=== PATIENT | female | born 1970 | race African-American/Black ===

== ENCOUNTER 2017-06-06 21:14 | Inpatient (IN) ==
[2017-06-06] MEDS ORDERED: SODIUM CHLORIDE 0.9% 1,000 ML IV STA (22:58)
[2017-06-06 23:30] LABS: Basophils % 0.1 % (0.0-0.8); Hematocrit 42.1 VOL% (35.7-47.0); Hemoglobin 14.5 GM/DL (12.0-16.0); Immature Granulocytes % 0.7 %; Immature Granulocytes Absolute 0.05 #; Lymphocytes # 1.4 10*3/uL (1.4-4.0); Lymphocytes % 19.6 % (21.3-54.2); Mean Corpuscular HGB Conc 34.4 GM/DL (32-36); Mean Corpuscular Hemoglobin 29 PG (27-34); Mean Corpuscular Volume 83.4 FL (87-102); Monocytes # 0.6 10*3/uL (0.11-0.8); Monocytes % 8.3 % (1.7-12.7); Neutrophils # 5.2 10*3/uL (1.4-7.4); Neutrophils % 71.3 % (38.7-73.9); Platelet Count 238 T/CUMM (130-400); Red Blood Count 5.05 MC/CUMM (3.8-5.5); Red Cell Distribution Width 13.5 % (9.3-17.3); White Blood Count 7.2 T/CUMM (4-12)
[2017-06-06 23:55] LABS: Albumin 3.3 G/DL (3.4-5.0); Bilirubin,Direct 0.14 MG/DL (0.0-0.20); Bilirubin,Indirect 0.4 MG/DL (0.0-1.0); Bilirubin,Total 0.5 MG/DL (0.2-1.0); Calcium 8.8 MG/DL (8.5-10.1); Osmolality,Calculated 272.2 MOS/KG (273-304); Potassium 3.4 MMOL/L (3.5-5.1); Total Protein 7.7 G/DL (6.4-8.3); Troponin I Only 0.027 NG/ML (0.00-0.045)
[2017-06-07 03:50] LABS: Apearance,Urine CLOUDY (Clear); Bacteria,Urine Occasional /HPF (Few); Bilirubin,Urine Negative (Negative); Blood, Urine Moderate mg/dL (Negative); Glucose,Urine (UA) Negative (Negative); Granular Casts,Urine 16 /LPF (0-1); Hyaline Casts,Urine 39 /LPF (0-3); Ketones,Urine 20 mg/dL (Negative); Mucus,Urine Moderate /LPF (Occasional); Nitrite,Urine Negative (Negative); Protein,Urine >=500 MG/DL; RBC,Urine 4 /HPF (0-4); Squamous Epithelial Cell,Urine Occasional /HPF (0-10); Urine Color Amber (Yellow); Urine Specific Gravity 1.027 (1.001-1.035); Urine Urobilinogen < 2.0 EU/DL (0.2-1.0); WBC,Urine 3 /HPF (0-6)
[2017-06-07] MEDS ORDERED: LEVOFLOXACIN INJ 750 MG in PREMIX 1 EACH IV STA (05:15)
[2017-06-07] MEDS ORDERED: ONDANSETRON 4 MG/2 ML VIAL IV PRN (09:02)
[2017-06-07] MEDS ORDERED: ALBUTEROL/IPRATROPIUM 3 ML NEB RESP TX PRN (09:02)
[2017-06-07] MEDS ORDERED: POTASSIUM CHLORIDE 20 MEQ TABLET PO ONE (09:02)
[2017-06-07] MEDS ORDERED: ACETAMINOPHEN 325 MG TABLET PO PRN (09:02)
[2017-06-07] MEDS ORDERED: GLUCAGON 1 MG VIAL IM PRN (09:02)
[2017-06-07] MEDS ORDERED: DEXTROSE 50% 25 GM/50 ML VIAL IV PRN (09:02)
[2017-06-07] MEDS ORDERED: SODIUM CHLORIDE 0.9% 500 ML IV ONE (09:02)
[2017-06-07] MEDS: METOPROLOL TARTRATE 25 MG TABLET PO SCH ×2 (09:30→12:17)
[2017-06-07] MEDS: metFORMIN 500 MG TABLET PO SCH ×2 (09:30→17:06)
[2017-06-07] MEDS: FUROSEMIDE 20 MG TABLET PO SCH (09:30)
[2017-06-07] MEDS: PIOGLITAZONE 45 MG TABLET PO SCH (09:30)
[2017-06-07] MEDS: DOCUSATE SODIUM 100 MG CAPSULE PO SCH ×2 (09:30→20:10)
[2017-06-07] MEDS: ALBUTEROL/IPRATROPIUM 3 ML NEB RESP TX SCH ×4 (10:48→23:15)
[2017-06-07] MEDS: PANTOPRAZOLE 40 MG TABLET PO SCH (11:23)
[2017-06-07] MEDS: MEROPENEM 1,000 MG in SYRINGE 1 EACH IV SCH ×2 (11:23→21:21)
[2017-06-07] MEDS: ENOXAPARIN 40 MG/0.4 ML SYRINGE SUBCUT SCH (11:31)
[2017-06-07] MEDS: SODIUM CHLORIDE 0.9% 1,000 ML IV SCH ×2 (12:17→21:27)
[2017-06-07] MEDS: INSULIN REGULAR 100 UNIT/ML SUBCUT SCH ×3 (12:18→23:57)
[2017-06-07] MEDS: LOVASTATIN 20 MG TABLET PO SCH (17:06)
[2017-06-08] MEDS: ALBUTEROL/IPRATROPIUM 3 ML NEB RESP TX SCH ×5 (03:19→19:54)
[2017-06-08 05:45] LABS: Basophils % 0.4 % (0.0-0.8); Eosinophils % 0.2 % (0.00-10.9); Hematocrit 39.7 VOL% (35.7-47.0); Hemoglobin 13.2 GM/DL (12.0-16.0); Immature Granulocytes % 0.4 %; Immature Granulocytes Absolute 0.02 #; Lymphocytes # 1.8 10*3/uL (1.4-4.0); Lymphocytes % 34.1 % (21.3-54.2); Mean Corpuscular HGB Conc 33.2 GM/DL (32-36); Mean Corpuscular Hemoglobin 28 PG (27-34); Mean Corpuscular Volume 85.2 FL (87-102); Mean Platelet Volume 11.6 FL (9.6-12.0); Monocytes # 0.6 10*3/uL (0.11-0.8); Monocytes % 11.9 % (1.7-12.7); Neutrophils # 2.8 10*3/uL (1.4-7.4); Platelet Count 195 T/CUMM (130-400); Red Blood Count 4.66 MC/CUMM (3.8-5.5); Red Cell Distribution Width 13.8 % (9.3-17.3); White Blood Count 5.2 T/CUMM (4-12)
[2017-06-08] MEDS: INSULIN REGULAR 100 UNIT/ML SUBCUT SCH ×3 (05:56→17:00)
[2017-06-08 06:14] LABS: Calcium 8.2 MG/DL (8.5-10.1); Osmolality,Calculated 276.5 MOS/KG (273-304); Potassium 3.7 MMOL/L (3.5-5.1)
[2017-06-08 06:16] LABS: Band Neutrophils 1 % (0-10); Eosinophils 1 % (0-10); Hypochromasia 2+; Lymphocytes 30 % (20-55); Platelet Estimate Normal; Segmented Neutrophils 58 % (50-85); Total Cells Counted 100
[2017-06-08] MEDS: PIOGLITAZONE 45 MG TABLET PO SCH (09:04)
[2017-06-08] MEDS: metFORMIN 500 MG TABLET PO SCH ×2 (09:04→17:00)
[2017-06-08] MEDS: FUROSEMIDE 20 MG TABLET PO SCH (09:05)
[2017-06-08] MEDS: DOCUSATE SODIUM 100 MG CAPSULE PO SCH ×2 (09:05→21:17)
[2017-06-08] MEDS: MEROPENEM 1,000 MG in SYRINGE 1 EACH IV SCH ×2 (09:29→21:21)
[2017-06-08] MEDS: METOPROLOL TARTRATE 25 MG TABLET PO SCH (09:29)
[2017-06-08] MEDS: PANTOPRAZOLE 40 MG TABLET PO SCH (09:30)
[2017-06-08] MEDS: ENOXAPARIN 40 MG/0.4 ML SYRINGE SUBCUT SCH (09:30)
[2017-06-08] MEDS: SODIUM CHLORIDE 0.9% 1,000 ML IV SCH ×2 (11:27→21:23)
[2017-06-08] MEDS: LOVASTATIN 20 MG TABLET PO SCH (17:00)
[2017-06-09] MEDS: ALBUTEROL/IPRATROPIUM 3 ML NEB RESP TX SCH ×7 (00:10→23:20)
[2017-06-09] MEDS: INSULIN REGULAR 100 UNIT/ML SUBCUT SCH ×5 (00:38→23:25)
[2017-06-09] MEDS: SODIUM CHLORIDE 0.9% 1,000 ML IV SCH ×4 (01:13→22:48)
[2017-06-09] MEDS: PIOGLITAZONE 45 MG TABLET PO SCH (09:38)
[2017-06-09] MEDS: METOPROLOL TARTRATE 25 MG TABLET PO SCH (09:38)
[2017-06-09] MEDS: metFORMIN 500 MG TABLET PO SCH ×2 (09:38→17:14)
[2017-06-09] MEDS: FUROSEMIDE 20 MG TABLET PO SCH (09:39)
[2017-06-09] MEDS: PANTOPRAZOLE 40 MG TABLET PO SCH (09:39)
[2017-06-09] MEDS: ENOXAPARIN 40 MG/0.4 ML SYRINGE SUBCUT SCH (09:39)
[2017-06-09] MEDS: DOCUSATE SODIUM 100 MG CAPSULE PO SCH ×2 (09:39→20:48)
[2017-06-09] MEDS: MEROPENEM 1,000 MG in SYRINGE 1 EACH IV SCH ×2 (09:39→20:48)
[2017-06-09] MEDS: methylPREDNISolone SOD SUC 40 MG/1 ML VIAL IV SCH ×2 (15:42→23:24)
[2017-06-09] MEDS: ACETYLCYSTEINE 20% 800 MG/4 ML VIAL RESP TX SCH ×2 (15:48→23:20)
[2017-06-09] MEDS: LOVASTATIN 20 MG TABLET PO SCH (17:14)
[2017-06-10] MEDS: SODIUM CHLORIDE 0.9% 1,000 ML IV SCH ×6 (01:17→17:03)
[2017-06-10] MEDS: ALBUTEROL/IPRATROPIUM 3 ML NEB RESP TX SCH ×7 (03:00→23:09)
[2017-06-10] MEDS: INSULIN REGULAR 100 UNIT/ML SUBCUT SCH ×3 (05:47→17:19)
[2017-06-10] MEDS: ACETYLCYSTEINE 20% 800 MG/4 ML VIAL RESP TX SCH ×3 (08:23→23:09)
[2017-06-10] MEDS: DOCUSATE SODIUM 100 MG CAPSULE PO SCH ×2 (08:36→20:53)
[2017-06-10] MEDS: metFORMIN 500 MG TABLET PO SCH ×3 (08:36→17:03)
[2017-06-10] MEDS: MEROPENEM 1,000 MG in SYRINGE 1 EACH IV SCH ×2 (08:37→20:53)
[2017-06-10] MEDS: PANTOPRAZOLE 40 MG TABLET PO SCH (08:37)
[2017-06-10] MEDS: METOPROLOL TARTRATE 25 MG TABLET PO SCH (08:37)
[2017-06-10] MEDS: methylPREDNISolone SOD SUC 40 MG/1 ML VIAL IV SCH ×2 (08:37→15:04)
[2017-06-10] MEDS: ENOXAPARIN 40 MG/0.4 ML SYRINGE SUBCUT SCH (08:38)
[2017-06-10] MEDS: LOVASTATIN 20 MG TABLET PO SCH (17:04)
[2017-06-11] MEDS: methylPREDNISolone SOD SUC 40 MG/1 ML VIAL IV SCH ×2 (00:20→09:14)
[2017-06-11] MEDS: INSULIN REGULAR 100 UNIT/ML SUBCUT SCH ×3 (00:21→12:23)
[2017-06-11] MEDS: SODIUM CHLORIDE 0.9% 1,000 ML IV SCH (03:05)
[2017-06-11] MEDS: ALBUTEROL/IPRATROPIUM 3 ML NEB RESP TX SCH ×3 (03:27→11:47)
[2017-06-11] MEDS: ACETYLCYSTEINE 20% 800 MG/4 ML VIAL RESP TX SCH (07:56)
[2017-06-11] MEDS: ENOXAPARIN 40 MG/0.4 ML SYRINGE SUBCUT SCH (09:17)
[2017-06-11] MEDS: metFORMIN 500 MG TABLET PO SCH (09:18)
[2017-06-11] MEDS: PANTOPRAZOLE 40 MG TABLET PO SCH (09:18)
[2017-06-11] MEDS: DOCUSATE SODIUM 100 MG CAPSULE PO SCH (09:18)
[2017-06-11] MEDS: MEROPENEM 1,000 MG in SYRINGE 1 EACH IV SCH (09:19)
[2017-06-11] MEDS: METOPROLOL TARTRATE 25 MG TABLET PO SCH (09:19)
[2017-06-11 12:35] VITALS: BP 143/75
== END 2017-06-11 13:58 | disposition home health service (06) | DRG 139 ==
LOC: EDUNIT# → EDBD → N.ED 21:14 → SUATTDRO 06-07 06:41 → N.EDINP 06-07 06:41 → N.5E 06-07 09:01
PROVIDERS: ADMIT Internal Medicine Infectious Disease; ATTEND Internal Medicine